=== PATIENT | male | born 1995 | race Two or more races ===

== ENCOUNTER 2019-05-15 19:24 | Emergency (ER) | payer OTHER ==
[~2019-05-15] VITALS: Ht 172.7 cm; Wt 83.9 kg
== END 2019-05-15 22:18 | disposition home or self-care (01) ==
LOC: ER 19:24
DX: R51 Headache (principal); M54.2 Cervicalgia

== ENCOUNTER 2019-05-17 19:19 | Emergency (ER) | payer OTHER ==
[~2019-05-17] VITALS: Ht 172.7 cm; Wt 83.9 kg
[2019-05-17] MEDS ORDERED: NORFLEX100MG (20:00)
[2019-05-17] MEDS ORDERED: DICLOFENAC SODI25 MG (20:01)
[2019-05-17] MEDS ORDERED: BUTALB-ACETAMI1 EAC2 PO (23:31)
== END 2019-05-18 00:32 | disposition home or self-care (01) ==
LOC: ER 19:19
DX: G44.201 Tension-type headache, unspecified, intractable (principal)

== ENCOUNTER 2020-02-07 13:30 | Emergency (ER) | payer OTHER ==
[~2020-02-07] VITALS: Ht 172.7 cm; Wt 83.9 kg
[~2020-02-07 13:30] MED LIST: BUTALB-ACETAMI1 EAC2 PO; DICLOFENAC SODI25 MG; NORFLEX100MG
[2020-02-07] MEDS ORDERED: VOLTAREN100 GM TOP (16:54)
== END 2020-02-07 16:55 | disposition home or self-care (01) ==
LOC: ER 13:30
DX: M79.641 Pain in right hand (principal)